=== PATIENT | male | born 1960 | race Caucasian/White ===

== ENCOUNTER → 2016-07-01 | Outpatient (CLI) | payer MEDICARE ==
[~2016-07-01] MED LIST: ASPIRIN81 MG PO; COREG12.5 MG PO; GLUCOPHAGE1000 MG PO; LANTUS100 UNIT/1 SQ; LIPITOR TAB 2020 MG PO; LISINOPRIL40 MG PO; NEURONTIN 400400 MG PO; NORVASC 5 MG TAB5 MG PO; PLAVIX 75 MG TA75 MG PO; VITAMIN B12-FO1 EACH PO
[2016-07-01 09:00] LABS: BUN/CREATININE RATIO 20 (0-10)
== END ==
LOC: LAB 07:43 → EDBD 07:43
PROVIDERS: Nurse Practitioner
DX: E11.8 Type 2 diabetes mellitus with unspecified complications (principal); R80.9 Proteinuria, unspecified
CPT/HCPCS: 80048; 80061; 82043; 82570; 83036; 84156; 84443

== ENCOUNTER 2020-05-13 13:01 | Inpatient (IN) | payer MEDICARE, OTHER ==
[~2020-05-13] VITALS: Ht 170.2 cm; Wt 75.4 kg
[~2020-05-13 13:01] MED LIST changes: +ADVAIR HFA 115/12 GM INH; +ALDACTONE25 MG PO; +CITALOPRAM HBR20 MG PO; +CLARITIN10 M2 PO; +CLOPIDOGREL75 MG PO; +COLESEVELAM HC625 MG PO; -COREG12.5 MG PO; +COREG3.125 MG PO; +CREON DR 36,001 EACH PO; +ELAVIL 25 MG TA25 MG PO; +FERROUS SULFAT325 MG PO; +FLOMAX 0.4 MG0.4 MG PO; +GABAPENTIN800 MG PO; +HYDROCODON-ACE1 EAC2 PO; +JARDIANCE25 MG PO; +MELATONIN10 M2 PO; +MIRTAZAPINE30 MG PO; +OLANZAPINE5 MG PO; +PAROXETINE HCL20 MG PO; +PAXIL20 MG PO; +PHENERGAN 12.12.5 M1 PO; +PROTONIX 40 MG40 M1 PO; +VENTOLIN HFA 66.7 GM INH; +VITAMIN B-122500 MCG PO
[2020-05-13 14:34] LABS: HEMOGLOBIN 8.9 gm/dl (14.0-17.5)
[2020-05-13 14:38] LABS: RED BLOOD COUNT 2.85 M/UL (4.20-5.50); WHITE BLOOD COUNT 8.2 K/UL (4.5-11.0)
[2020-05-13 15:02] LABS: BUN/CREATININE RATIO 18 (0-10)
[2020-05-13] MEDS ORDERED: HUMALOG100 UNIT/3 SQ (19:21)
[2020-05-13] MEDS ORDERED: VITAMIN D21250 MCG PO (19:26)
[2020-05-13] MEDS ORDERED: ROPINIROLE HCL2 MG PO (19:34)
[2020-05-13] MEDS ORDERED: IPRAT-ALBUT 0.5-3 ML INH (19:36)
[2020-05-14 05:04] LABS: HEMOGLOBIN 8.2 gm/dl (14.0-17.5); RED BLOOD COUNT 2.64 M/UL (4.20-5.50)
[2020-05-14 05:28] LABS: BUN/CREATININE RATIO 16 (0-10)
[2020-05-15 05:01] LABS: HEMOGLOBIN 8.1 gm/dl (14.0-17.5); RED BLOOD COUNT 2.6 M/UL (4.20-5.50); WHITE BLOOD COUNT 8.7 K/UL (4.5-11.0)
[2020-05-15 05:22] LABS: BUN/CREATININE RATIO 10 (0-10)
--- NOTE | 2020-05-15 16:46 | NUR ---
BLOOD SUGAR 64MG/DL
[2020-05-16 06:41] LABS: BUN/CREATININE RATIO 11 (0-10)
[2020-05-17 04:11] LABS: HEMOGLOBIN 8.7 gm/dl (14.0-17.5); RED BLOOD COUNT 2.86 M/UL (4.20-5.50); WHITE BLOOD COUNT 8.4 K/UL (4.5-11.0)
[2020-05-17 04:47] LABS: BUN/CREATININE RATIO 16 (0-10)
[2020-05-18 07:16] LABS: BUN/CREATININE RATIO 19 (0-10)
[2020-05-19 06:21] LABS: HEMOGLOBIN 9.4 gm/dl (14.0-17.5); RED BLOOD COUNT 3.05 M/UL (4.20-5.50); WHITE BLOOD COUNT 8.9 K/UL (4.5-11.0)
[2020-05-19 06:43] LABS: BUN/CREATININE RATIO 20 (0-10)
[2020-05-20 03:31] LABS: HEMOGLOBIN 9.9 gm/dl (14.0-17.5); RED BLOOD COUNT 3.2 M/UL (4.20-5.50); WHITE BLOOD COUNT 10.2 K/UL (4.5-11.0)
[2020-05-20 04:03] LABS: BUN/CREATININE RATIO 21 (0-10)
[2020-05-21 03:21] LABS: HEMOGLOBIN 9.4 gm/dl (14.0-17.5); RED BLOOD COUNT 3.04 M/UL (4.20-5.50); WHITE BLOOD COUNT 9.2 K/UL (4.5-11.0)
[2020-05-21 03:43] LABS: BUN/CREATININE RATIO 25 (0-10)
[2020-05-22 03:30] LABS: HEMOGLOBIN 9.8 gm/dl (14.0-17.5); RED BLOOD COUNT 3.15 M/UL (4.20-5.50)
[2020-05-22 03:46] LABS: BUN/CREATININE RATIO 20 (0-10)
--- NOTE | 2020-05-22 07:34 | NUR ---
SPOKE WITH PATIENT AND SON, STATED HE HASN'T WALKED IN 3 YEARS D/T STROKE AND WEAKNESS. [place]
[2020-05-22] MEDS ORDERED: LOPRESSOR 50 MG50 MG PO (10:22)
[2020-05-22] MEDS ORDERED: LISINOPRIL5 MG PO (10:22)
[2020-09-17] MEDS ORDERED: GABAPENTIN800 MG PO (07:50)
[2020-09-17] MEDS ORDERED: OXYCODON-ACETA1 EAC1 PO (07:51)
[2020-09-17] MEDS ORDERED: CREON DR 36,001 EACH PO (07:52)
[2020-09-17] MEDS ORDERED: FUROSEMIDE40 MG PO (07:53)
[2020-09-17] MEDS ORDERED: MIRTAZAPINE30 MG PO (07:53)
[2020-09-17] MEDS ORDERED: LANTUS SOL100 UNIT/1 SQ (07:54)
[2020-09-17] MEDS ORDERED: ATORVASTATIN CA40 MG PO (07:55)
[2020-09-17] MEDS ORDERED: CITALOPRAM HBR20 MG PO (07:55)
[2020-09-17] MEDS ORDERED: FERROUS SULFAT325 MG PO (07:56)
[2020-09-17] MEDS ORDERED: CLOPIDOGREL75 MG PO (07:56)
[2020-09-17] MEDS ORDERED: HUMALOG100 UNIT/3 SC (07:56)
[2020-09-17] MEDS ORDERED: COLESEVELAM HC625 MG PO (07:57)
[2020-09-17] MEDS ORDERED: LOPRESSOR 50 MG50 MG PO (07:58)
[2020-09-17] MEDS ORDERED: PAROXETINE HCL20 MG PO (07:59)
[2020-09-17] MEDS ORDERED: PROTONIX 40 MG40 M1 PO (08:00)
[2020-09-17] MEDS ORDERED: PHENERGAN 25 MG25 M1 PO (08:00)
[2020-09-17] MEDS ORDERED: POTASSIUM CHLO10 ME1 PO (08:01)
[2020-09-17] MEDS ORDERED: ROPINIROLE HCL2 MG PO (08:01)
[2020-09-17] MEDS ORDERED: OLANZAPINE5 MG PO (08:02)
[2020-09-17] MEDS ORDERED: CLARITIN 10MG T10 MG PO (08:02)
[2020-09-17] MEDS ORDERED: VITAMIN D21250 MCG PO (08:02)
[2020-09-17] MEDS ORDERED: MELATONIN5 M2 PO (08:03)
[2020-09-17] MEDS ORDERED: FLOMAX 0.4 MG0.4 MG PO (08:03)
[2020-09-17] MEDS ORDERED: AMITRIPTYLINE H25 MG PO (08:03)
[2020-09-17] MEDS ORDERED: VITAMIN B-122500 MCG PO (08:04)
[2020-09-17] MEDS ORDERED: PROVENTIL HFA6.7 GM INH (08:05)
[2020-09-17] MEDS ORDERED: ALBUTEROL1.25 MG/3 INH (08:05)
[2020-09-17] MEDS ORDERED: ADVAIR 250-501 EACH INH (08:06)
== END 2020-05-22 13:20 | disposition home health service (06) | DRG 871 ==
LOC: ER1 13:01 → M/S 17:17 → CDU 17:17 → M/S 05-14 18:12
PROVIDERS: Emergency Medicine; Family Medicine; Internal Medicine Cardiovascular Disease; Physician Assistant Medical; ADMIT Internal Medicine
PROC: B24BZZZ Ultrasonography of Heart with Aorta (ICD-10-PCS; 2020-05-14)
PROC: 4A023N7 Measurement of Cardiac Sampling and Pressure, Left Heart, Percutaneous Approach (ICD-10-PCS; principal; 2020-05-20)
PROC: B2111ZZ Fluoroscopy of Multiple Coronary Arteries using Low Osmolar Contrast (ICD-10-PCS; 2020-05-20)
PROC: B2151ZZ Fluoroscopy of Left Heart using Low Osmolar Contrast (ICD-10-PCS; 2020-05-20)
PROC: 4A033BC Measurement of Arterial Pressure, Coronary, Percutaneous Approach (ICD-10-PCS; 2020-05-20)
DX: A41.9 Sepsis, unspecified organism (principal); J96.01 Acute respiratory failure with hypoxia; R53.2 Functional quadriplegia; I50.21 Acute systolic (congestive) heart failure; I69.354 Hemiplegia and hemiparesis following cerebral infarction affecting left non-dominant side; C25.9 Malignant neoplasm of pancreas, unspecified; E87.2 Acidosis; K52.1 Toxic gastroenteritis and colitis; Z20.822 Contact with and (suspected) exposure to COVID-19; I25.10 Atherosclerotic heart disease of native coronary artery without angina pectoris; R74.01 Elevation of levels of liver transaminase levels; I11.0 Hypertensive heart disease with heart failure; I25.5 Ischemic cardiomyopathy; D63.0 Anemia in neoplastic disease; E11.65 Type 2 diabetes mellitus with hyperglycemia; T45.1X5A Adverse effect of antineoplastic and immunosuppressive drugs, initial encounter; E55.9 Vitamin D deficiency, unspecified; E78.5 Hyperlipidemia, unspecified; K21.9 Gastro-esophageal reflux disease without esophagitis; D50.9 Iron deficiency anemia, unspecified; E87.6 Hypokalemia; G47.00 Insomnia, unspecified; Z82.49 Family history of ischemic heart disease and other diseases of the circulatory system; Z88.8 Allergy status to other drugs, medicaments and biological substances; Z88.2 Allergy status to sulfonamides; Z74.01 Bed confinement status; Z83.3 Family history of diabetes mellitus; Z84.89 Family history of other specified conditions; Z79.02 Long term (current) use of antithrombotics/antiplatelets; Z79.82 Long term (current) use of aspirin; Z79.899 Other long term (current) drug therapy
CPT/HCPCS: ECHO; 0240U; 36415; 71045; 80048; 80053; 80061; 80202; 81001; 82607; 82962; 83036; 83605; 83735; 83880; 84100; 84443; 85014; 85018; 85025; 85027; 87040; 87081; 87086; 93005; 93306; 93970; 94640; 94760; 96365; 96366; 96367; 96368; 96372; 96375; 96376; 97110-GP-CQ; 97162; 97530-GP-CQ; 99152; 99153; 99285; C1769; J1644; J1650; J1940; J2185; J2250; J2270; J3010; J3370; J7030; J7050; J7070; P9047; Q9963; Q9967

== ENCOUNTER → 2020-06-13 | Outpatient (CLI) | payer OTHER ==
[~2020-06-13] MED LIST changes: +ADVAIR 250-501 EACH INH; +ADVAIR HFA 115-28 GM INH; +ALBUTEROL1.25 MG/3 INH; +AMITRIPTYLINE H25 MG PO; +ASPIRIN EC81 MG PO; +ATORVASTATIN CA40 MG PO; +CELEXA20 MG PO; +CENTRUM MU9 MG/15 ML PO; +CLARITIN 10MG T10 MG PO; +FERROUS SULFAT325 M2 PO; +FUROSEMIDE40 MG PO; +HUMALOG100 UNIT/3 SC; +HUMALOG100 UNIT/3 SQ; +HYDROCODONE-AC1 EAC1 PO; +IPRAT-ALBUT 0.5-3 ML INH; +LANTUS SOL100 UNIT/1 SQ; +LASIX40 MG PO; +LIPITOR40 MG PO; +LISINOPRIL5 MG PO; +LOPRESSOR 50 MG50 MG PO; +LOPRESSOR50 MG PO; +MEDIHONEY TP; +MELATONIN5 M2 PO; +NEURONTIN800 MG PO; +OXYCODON-ACETA1 EAC1 PO; +PHENERGAN 25 MG25 M1 PO; +POTASSIUM CHLO10 ME1 PO; +PROTONIX40 MG PO; +PROVENTIL HFA6.7 GM INH; +REMERON30 MG PO; +ROPINIROLE HCL2 MG PO; +VITAMIN B-1100 M1 PO; +VITAMIN B-122500 MCG SL; +VITAMIN D21250 MCG PO; +WELCHOL 625 MG625 MG PO; +ZESTRIL5 MG PO; +ZYPREXA5 MG PO
== END ==
LOC: EDBD 08:24 → WCC 08:24
DX: E11.621 Type 2 diabetes mellitus with foot ulcer (principal); L97.509 Non-pressure chronic ulcer of other part of unspecified foot with unspecified severity; E11.618 Type 2 diabetes mellitus with other diabetic arthropathy; I10 Essential (primary) hypertension; M62.81 Muscle weakness (generalized); I69.364 Other paralytic syndrome following cerebral infarction affecting left non-dominant side; N18.30 Chronic kidney disease, stage 3 unspecified; I25.5 Ischemic cardiomyopathy; C25.3 Malignant neoplasm of pancreatic duct; E11.22 Type 2 diabetes mellitus with diabetic chronic kidney disease; Z79.4 Long term (current) use of insulin; Z87.01 Personal history of pneumonia (recurrent); Z99.3 Dependence on wheelchair
CPT/HCPCS: 97597; G0463

== ENCOUNTER 2020-06-16 10:03 | Observation (INO) | payer MEDICARE, OTHER ==
[~2020-06-16] VITALS: Ht 167.6 cm; Wt 74.8 kg
[~2020-06-16 10:03] MED LIST changes: -ADVAIR 250-501 EACH INH; -ADVAIR HFA 115-28 GM INH; -ALBUTEROL1.25 MG/3 INH; -AMITRIPTYLINE H25 MG PO; -ASPIRIN EC81 MG PO; -ATORVASTATIN CA40 MG PO; -CELEXA20 MG PO; -CENTRUM MU9 MG/15 ML PO; -CLARITIN 10MG T10 MG PO; -FERROUS SULFAT325 M2 PO; -FUROSEMIDE40 MG PO; -HUMALOG100 UNIT/3 SC; -HYDROCODONE-AC1 EAC1 PO; -LANTUS SOL100 UNIT/1 SQ; -LASIX40 MG PO; -LIPITOR40 MG PO; -LOPRESSOR50 MG PO; -MEDIHONEY TP; -MELATONIN5 M2 PO; -NEURONTIN800 MG PO; -OXYCODON-ACETA1 EAC1 PO; -PHENERGAN 25 MG25 M1 PO; -POTASSIUM CHLO10 ME1 PO; -PROTONIX40 MG PO; -PROVENTIL HFA6.7 GM INH; -REMERON30 MG PO; -VITAMIN B-1100 M1 PO; -VITAMIN B-122500 MCG SL; -WELCHOL 625 MG625 MG PO; -ZESTRIL5 MG PO; -ZYPREXA5 MG PO
[2020-06-16 10:53] LABS: HEMOGLOBIN 8.3 gm/dl (14.0-17.5); RED BLOOD COUNT 2.64 M/UL (4.20-5.50); WHITE BLOOD COUNT 5.7 K/UL (4.5-11.0)
[2020-06-16 11:34] LABS: BUN/CREATININE RATIO 16 (0-10)
[2020-06-16] MEDS ORDERED: LOPRESSOR50 MG PO (17:26)
[2020-06-16] MEDS ORDERED: PLAVIX 75 MG TA75 MG PO (17:26)
[2020-06-16] MEDS ORDERED: ZESTRIL5 MG PO (17:26)
[2020-06-16] MEDS ORDERED: LIPITOR40 MG PO (17:26)
[2020-06-16] MEDS ORDERED: LANTUS SOL100 UNIT/1 SQ (17:27)
[2020-06-16] MEDS ORDERED: ASPIRIN EC81 MG PO (17:27)
[2020-06-16] MEDS ORDERED: HYDROCODONE-AC1 EAC1 PO (17:28)
[2020-06-16] MEDS ORDERED: NEURONTIN800 MG PO (17:28)
[2020-06-16] MEDS ORDERED: PROTONIX40 MG PO (17:29)
[2020-06-16] MEDS ORDERED: CELEXA20 MG PO (17:29)
[2020-06-16] MEDS ORDERED: ZYPREXA5 MG PO (17:30)
[2020-06-16] MEDS ORDERED: PHENERGAN 12.12.5 M1 PO (17:30)
[2020-06-16] MEDS ORDERED: FLOMAX 0.4 MG0.4 MG PO (17:30)
[2020-06-16] MEDS ORDERED: WELCHOL 625 MG625 MG PO (17:31)
[2020-06-16] MEDS ORDERED: FERROUS SULFAT325 M2 PO (17:32)
[2020-06-16] MEDS ORDERED: ADVAIR HFA 115-28 GM INH (17:33)
[2020-06-16] MEDS ORDERED: VENTOLIN HFA 66.7 GM INH (17:34)
[2020-06-16] MEDS ORDERED: PAXIL20 MG PO (17:36)
[2020-06-16] MEDS ORDERED: CLARITIN10 M2 PO (17:36)
[2020-06-16] MEDS ORDERED: CREON DR 36,001 EACH PO (17:36)
[2020-06-16] MEDS ORDERED: REMERON30 MG PO (17:37)
[2020-06-16] MEDS ORDERED: MELATONIN10 M2 PO (17:37)
[2020-06-16] MEDS ORDERED: VITAMIN B-122500 MCG SL (17:38)
[2020-06-16] MEDS ORDERED: AMITRIPTYLINE H25 MG PO (17:38)
[2020-06-16] MEDS ORDERED: HUMALOG100 UNIT/3 SC (17:40)
[2020-06-16] MEDS ORDERED: ROPINIROLE HCL2 MG PO (17:41)
[2020-06-16] MEDS ORDERED: VITAMIN D21250 MCG PO (17:41)
[2020-06-16] MEDS ORDERED: IPRAT-ALBUT 0.5-3 ML INH (17:42)
[2020-06-16 20:31] LABS: HEMOGLOBIN 8.8 gm/dl (14.0-17.5)
[2020-06-17 06:03] LABS: HEMOGLOBIN 7.8 gm/dl (14.0-17.5); RED BLOOD COUNT 2.46 M/UL (4.20-5.50); WHITE BLOOD COUNT 5.1 K/UL (4.5-11.0)
[2020-06-17 06:38] LABS: BUN/CREATININE RATIO 14 (0-10)
[2020-06-19 21:09] LABS: ADENOVIRUS F 40/41 Not Detected (Not Detected); ASTROVIRUS Not Detected (Not Detected); C DIFFICILE TOXIN A/B Not Detected (Not Detected); CAMPYLOBACTER Not Detected (Not Detected); CRYPTOSPORIDIUM Not Detected (Not Detected); CYCLOSPORA CAYETANENSIS Not Detected (Not Detected); ENTAMOEBA HISTOLYTICA Not Detected (Not Detected); ENTEROAGGREGATIVE E COLI Not Detected (Not Detected); ENTEROPATHOGENIC E COLI Not Detected (Not Detected); ENTEROTOXIGENIC E COLI Not Detected (Not Detected); GIARDIA LAMBLIA Not Detected (Not Detected); NOROVIRUS GI/GII Not Detected (Not Detected); PLESIOMONAS SHIGELLOIDES Not Detected (Not Detected); ROTAVIRUS A Not Detected (Not Detected); SALMONELLA Not Detected (Not Detected); SAPOVIRUS Not Detected (Not Detected); SHIGA-TOXIN-PRODUCING E COLI Not Detected (Not Detected); SHIGELLA/ENTEROINVASIVE E COLI Not Detected (Not Detected); VIBRIO Not Detected (Not Detected); VIBRIO CHOLERAE Not Detected (Not Detected); YERSINIA ENTEROCOLITICA Not Detected (Not Detected)
[2020-09-17] MEDS ORDERED: GABAPENTIN800 MG PO (07:50)
[2020-09-17] MEDS ORDERED: OXYCODON-ACETA1 EAC1 PO (07:51)
[2020-09-17] MEDS ORDERED: CREON DR 36,001 EACH PO (07:52)
[2020-09-17] MEDS ORDERED: FUROSEMIDE40 MG PO (07:53)
[2020-09-17] MEDS ORDERED: MIRTAZAPINE30 MG PO (07:53)
[2020-09-17] MEDS ORDERED: LANTUS SOL100 UNIT/1 SQ (07:54)
[2020-09-17] MEDS ORDERED: CITALOPRAM HBR20 MG PO (07:55)
[2020-09-17] MEDS ORDERED: ATORVASTATIN CA40 MG PO (07:55)
[2020-09-17] MEDS ORDERED: CLOPIDOGREL75 MG PO (07:56)
[2020-09-17] MEDS ORDERED: HUMALOG100 UNIT/3 SC (07:56)
[2020-09-17] MEDS ORDERED: FERROUS SULFAT325 MG PO (07:56)
[2020-09-17] MEDS ORDERED: COLESEVELAM HC625 MG PO (07:57)
[2020-09-17] MEDS ORDERED: LOPRESSOR 50 MG50 MG PO (07:58)
[2020-09-17] MEDS ORDERED: PAROXETINE HCL20 MG PO (07:59)
[2020-09-17] MEDS ORDERED: PHENERGAN 25 MG25 M1 PO (08:00)
[2020-09-17] MEDS ORDERED: PROTONIX 40 MG40 M1 PO (08:00)
[2020-09-17] MEDS ORDERED: ROPINIROLE HCL2 MG PO (08:01)
[2020-09-17] MEDS ORDERED: POTASSIUM CHLO10 ME1 PO (08:01)
[2020-09-17] MEDS ORDERED: CLARITIN 10MG T10 MG PO (08:02)
[2020-09-17] MEDS ORDERED: OLANZAPINE5 MG PO (08:02)
[2020-09-17] MEDS ORDERED: VITAMIN D21250 MCG PO (08:02)
[2020-09-17] MEDS ORDERED: MELATONIN5 M2 PO (08:03)
[2020-09-17] MEDS ORDERED: FLOMAX 0.4 MG0.4 MG PO (08:03)
[2020-09-17] MEDS ORDERED: AMITRIPTYLINE H25 MG PO (08:03)
[2020-09-17] MEDS ORDERED: VITAMIN B-122500 MCG PO (08:04)
[2020-09-17] MEDS ORDERED: ALBUTEROL1.25 MG/3 INH (08:05)
[2020-09-17] MEDS ORDERED: PROVENTIL HFA6.7 GM INH (08:05)
[2020-09-17] MEDS ORDERED: ADVAIR 250-501 EACH INH (08:06)
== END 2020-06-17 13:35 | disposition home or self-care (01) ==
LOC: ER1 10:03 → MED SURG 4 16:46 → CDU 16:46 → MED SURG 4 16:46
PROVIDERS: Internal Medicine; Nurse Practitioner; Physician Assistant; ADMIT Internal Medicine
DX: K92.1 Melena (principal); D62 Acute posthemorrhagic anemia; D61.818 Other pancytopenia; E87.6 Hypokalemia; R74.01 Elevation of levels of liver transaminase levels; C25.9 Malignant neoplasm of pancreas, unspecified; J45.909 Unspecified asthma, uncomplicated; E11.9 Type 2 diabetes mellitus without complications; I11.0 Hypertensive heart disease with heart failure; I50.22 Chronic systolic (congestive) heart failure; I25.10 Atherosclerotic heart disease of native coronary artery without angina pectoris; I25.5 Ischemic cardiomyopathy; F10.10 Alcohol abuse, uncomplicated; I69.954 Hemiplegia and hemiparesis following unspecified cerebrovascular disease affecting left non-dominant side; Z87.891 Personal history of nicotine dependence; Z88.1 Allergy status to other antibiotic agents; Z88.8 Allergy status to other drugs, medicaments and biological substances; Z79.4 Long term (current) use of insulin; Z79.02 Long term (current) use of antithrombotics/antiplatelets; Z79.82 Long term (current) use of aspirin; Z79.899 Other long term (current) drug therapy; Z20.822 Contact with and (suspected) exposure to COVID-19; Z95.5 Presence of coronary angioplasty implant and graft; Z95.1 Presence of aortocoronary bypass graft
CPT/HCPCS: 36415; 80048; 80053; 82140; 82270; 82962; 83605; 83735; 85014; 85018; 85025; 85610; 85730; 86850; 86900; 86901; 87040; 87507; 90471; 94640; 94664; 96372; 96374; 96375; 99285; C9113; G0378; J3475; U0002

== ENCOUNTER → 2020-06-20 | Outpatient (CLI) | payer MEDICARE, OTHER ==
[~2020-06-20] MED LIST changes: +ADVAIR 250-501 EACH INH; +ADVAIR HFA 115-28 GM INH; +ALBUTEROL1.25 MG/3 INH; +AMITRIPTYLINE H25 MG PO; +ASPIRIN EC81 MG PO; +ATORVASTATIN CA40 MG PO; +CELEXA20 MG PO; +CENTRUM MU9 MG/15 ML PO; +CLARITIN 10MG T10 MG PO; +FERROUS SULFAT325 M2 PO; +FUROSEMIDE40 MG PO; +HUMALOG100 UNIT/3 SC; +HYDROCODONE-AC1 EAC1 PO; +LANTUS SOL100 UNIT/1 SQ; +LASIX40 MG PO; +LIPITOR40 MG PO; +LOPRESSOR50 MG PO; +MEDIHONEY TP; +MELATONIN5 M2 PO; +NEURONTIN800 MG PO; +OXYCODON-ACETA1 EAC1 PO; +PHENERGAN 25 MG25 M1 PO; +POTASSIUM CHLO10 ME1 PO; +PROTONIX40 MG PO; +PROVENTIL HFA6.7 GM INH; +REMERON30 MG PO; +VITAMIN B-1100 M1 PO; +VITAMIN B-122500 MCG SL; +WELCHOL 625 MG625 MG PO; +ZESTRIL5 MG PO; +ZYPREXA5 MG PO
== END ==
LOC: WCC 08:15
PROC: 0JBR0ZZ Excision of Left Foot Subcutaneous Tissue and Fascia, Open Approach (ICD-10-PCS; principal; 2020-06-20)
DX: I96 Gangrene, not elsewhere classified (principal); L89.890 Pressure ulcer of other site, unstageable; E11.621 Type 2 diabetes mellitus with foot ulcer; L97.529 Non-pressure chronic ulcer of other part of left foot with unspecified severity; E11.52 Type 2 diabetes mellitus with diabetic peripheral angiopathy with gangrene; E11.618 Type 2 diabetes mellitus with other diabetic arthropathy; E11.40 Type 2 diabetes mellitus with diabetic neuropathy, unspecified; M62.81 Muscle weakness (generalized); I69.364 Other paralytic syndrome following cerebral infarction affecting left non-dominant side; I12.9 Hypertensive chronic kidney disease with stage 1 through stage 4 chronic kidney disease, or unspecified chronic kidney disease; E11.22 Type 2 diabetes mellitus with diabetic chronic kidney disease; N18.30 Chronic kidney disease, stage 3 unspecified; D63.1 Anemia in chronic kidney disease; I25.2 Old myocardial infarction; J45.909 Unspecified asthma, uncomplicated; I25.10 Atherosclerotic heart disease of native coronary artery without angina pectoris; M19.90 Unspecified osteoarthritis, unspecified site; C25.3 Malignant neoplasm of pancreatic duct; G40.909 Epilepsy, unspecified, not intractable, without status epilepticus; Z88.1 Allergy status to other antibiotic agents; Z88.8 Allergy status to other drugs, medicaments and biological substances; Z79.4 Long term (current) use of insulin; Z87.01 Personal history of pneumonia (recurrent); Z79.899 Other long term (current) drug therapy; Z99.3 Dependence on wheelchair; Z92.21 Personal history of antineoplastic chemotherapy

== ENCOUNTER → 2020-06-27 | Outpatient (CLI) | payer MEDICARE, OTHER | LOC: WCC 07:27 | PROC: 0KBW0ZZ Excision of Left Foot Muscle, Open Approach (ICD-10-PCS; principal; 2020-06-27) | DX: E11.621 Type 2 diabetes mellitus with foot ulcer (principal); L97.523 Non-pressure chronic ulcer of other part of left foot with necrosis of muscle; E11.52 Type 2 diabetes mellitus with diabetic peripheral angiopathy with gangrene; I96 Gangrene, not elsewhere classified; I12.9 Hypertensive chronic kidney disease with stage 1 through stage 4 chronic kidney disease, or unspecified chronic kidney disease; E11.22 Type 2 diabetes mellitus with diabetic chronic kidney disease; N18.30 Chronic kidney disease, stage 3 unspecified; D63.1 Anemia in chronic kidney disease; I69.364 Other paralytic syndrome following cerebral infarction affecting left non-dominant side; I25.2 Old myocardial infarction; C25.3 Malignant neoplasm of pancreatic duct; E11.618 Type 2 diabetes mellitus with other diabetic arthropathy; E11.40 Type 2 diabetes mellitus with diabetic neuropathy, unspecified; M62.81 Muscle weakness (generalized); Z87.01 Personal history of pneumonia (recurrent); Z79.4 Long term (current) use of insulin; Z79.899 Other long term (current) drug therapy; Z99.3 Dependence on wheelchair; Z88.1 Allergy status to other antibiotic agents; Z88.8 Allergy status to other drugs, medicaments and biological substances ==

== ENCOUNTER 2020-06-29 17:30 | Inpatient (IN) | payer MEDICARE, OTHER ==
[~2020-06-29] VITALS: Ht 170.2 cm; Wt 74.1 kg
[~2020-06-29 17:30] MED LIST changes: -ADVAIR 250-501 EACH INH; -ALBUTEROL1.25 MG/3 INH; -ATORVASTATIN CA40 MG PO; -CENTRUM MU9 MG/15 ML PO; -CLARITIN 10MG T10 MG PO; -FUROSEMIDE40 MG PO; -LASIX40 MG PO; -MEDIHONEY TP; -MELATONIN5 M2 PO; -OXYCODON-ACETA1 EAC1 PO; -PHENERGAN 25 MG25 M1 PO; -POTASSIUM CHLO10 ME1 PO; -PROVENTIL HFA6.7 GM INH; -VITAMIN B-1100 M1 PO
[2020-06-29 18:09] LABS: HEMOGLOBIN 8.4 gm/dl (14.0-17.5); RED BLOOD COUNT 2.68 M/UL (4.20-5.50); WHITE BLOOD COUNT 7.9 K/UL (4.5-11.0)
[2020-06-29 18:37] LABS: BUN/CREATININE RATIO 21 (0-10)
--- NOTE | 2020-06-30 08:00 | NUR ---
PT WAS WHEEZING ON ASSESSMENT. LUNGS WERE DIMINISHED ON THE LOWER LOBES. PT WAS IN NO DISTRESS. MD NOTIFIED.
--- NOTE | 2020-06-30 09:00 | NUR ---
PT HAS EXPIRATORY WHEEZING. LOWER LOBE SOUNDS WERE DIMINISHED. MD NOTIFIED.
--- NOTE | 2020-06-30 12:00 | NUR ---
PT HAS WOUND ON L HEEL. STATED THAT HE GOES TO WOUND CARE. NO PICTURES TAKEN. THERE ARE PICTURES OF THE WOUND IN [facility].
[2020-07-01 02:46] LABS: HEMOGLOBIN 7.7 gm/dl (14.0-17.5); RED BLOOD COUNT 2.49 M/UL (4.20-5.50); WHITE BLOOD COUNT 7.2 K/UL (4.5-11.0)
[2020-07-01 03:42] LABS: BUN/CREATININE RATIO 12 (0-10)
[2020-07-01] MEDS ORDERED: MEDIHONEY TP (12:57)
[2020-07-01] MEDS ORDERED: FERROUS SULFAT325 M2 PO (12:59)
--- NOTE | 2020-07-01 18:15 | NUR ---
PT CALLED OUT SAYING HE COULD NOT BREATH. ON ASSESSMENT I HEARD COARSE/RALES ON AUSCULTATION. AND THE PATIENT WAS HAVING TROUBLE BREATHING WHILE AT REST. MD NOTIFIED AND ORDERED A STAT X-RAY AND ABG. TOLD TO START PT ON HIGHFLOW OXYGEN. PT WAS THEN PUT ON AIRVO AND AFTER ABG WE WERE TOLD HE NEEDED INTUBATED AND TO PUT ON BIPAP UNTIL INTUBATED. RECIEVED ORDERS TO GIVE BEDSIDE REPORT. TRANSFERRED PT TO THE UNIT WITH BIPAP ON. BEDSIDE REPORT WAS GIVEN.
[2020-07-02 05:59] LABS: BUN/CREATININE RATIO 10 (0-10)
[2020-07-02 08:20] LABS: HEMOGLOBIN 8.4 gm/dl (14.0-17.5); RED BLOOD COUNT 2.73 M/UL (4.20-5.50)
[2020-07-02 08:24] LABS: WHITE BLOOD COUNT 10.4 K/UL (4.5-11.0)
[2020-07-03 05:06] LABS: BUN/CREATININE RATIO 15 (0-10)
[2020-07-04 05:01] LABS: HEMOGLOBIN 9.3 gm/dl (14.0-17.5); WHITE BLOOD COUNT 9.6 K/UL (4.5-11.0)
[2020-07-04 05:10] LABS: RED BLOOD COUNT 3.03 M/UL (4.20-5.50)
[2020-07-04 05:52] LABS: BUN/CREATININE RATIO 22 (0-10)
[2020-07-05 05:04] LABS: RED BLOOD COUNT 2.88 M/UL (4.20-5.50)
[2020-07-05 05:06] LABS: WHITE BLOOD COUNT 12.2 K/UL (4.5-11.0)
[2020-07-05 05:35] LABS: BUN/CREATININE RATIO 34 (0-10)
[2020-07-06 04:51] LABS: HEMOGLOBIN 10.4 gm/dl (14.0-17.5); WHITE BLOOD COUNT 13.6 K/UL (4.5-11.0)
[2020-07-06 04:53] LABS: RED BLOOD COUNT 3.4 M/UL (4.20-5.50)
[2020-07-06 05:52] LABS: BUN/CREATININE RATIO 38 (0-10)
[2020-07-07 01:29] LABS: HEMOGLOBIN 9.9 gm/dl (14.0-17.5); RED BLOOD COUNT 3.21 M/UL (4.20-5.50); WHITE BLOOD COUNT 10.6 K/UL (4.5-11.0)
[2020-07-07 01:50] LABS: BUN/CREATININE RATIO 31 (0-10)
[2020-07-08 03:02] LABS: BUN/CREATININE RATIO 27 (0-10)
[2020-07-09 03:10] LABS: HEMOGLOBIN 11.1 gm/dl (14.0-17.5); WHITE BLOOD COUNT 12.8 K/UL (4.5-11.0)
[2020-07-09 03:11] LABS: RED BLOOD COUNT 3.59 M/UL (4.20-5.50)
[2020-07-09 03:43] LABS: BUN/CREATININE RATIO 28 (0-10)
[2020-07-10] MEDS ORDERED: VITAMIN B-1100 M1 PO (10:28)
[2020-07-10] MEDS ORDERED: CENTRUM MU9 MG/15 ML PO (10:28)
[2020-07-10] MEDS ORDERED: LASIX40 MG PO (10:50)
[2020-09-17] MEDS ORDERED: GABAPENTIN800 MG PO (07:50)
[2020-09-17] MEDS ORDERED: OXYCODON-ACETA1 EAC1 PO (07:51)
[2020-09-17] MEDS ORDERED: CREON DR 36,001 EACH PO (07:52)
[2020-09-17] MEDS ORDERED: MIRTAZAPINE30 MG PO (07:53)
[2020-09-17] MEDS ORDERED: FUROSEMIDE40 MG PO (07:53)
[2020-09-17] MEDS ORDERED: LANTUS SOL100 UNIT/1 SQ (07:54)
[2020-09-17] MEDS ORDERED: ATORVASTATIN CA40 MG PO (07:55)
[2020-09-17] MEDS ORDERED: CITALOPRAM HBR20 MG PO (07:55)
[2020-09-17] MEDS ORDERED: FERROUS SULFAT325 MG PO (07:56)
[2020-09-17] MEDS ORDERED: CLOPIDOGREL75 MG PO (07:56)
[2020-09-17] MEDS ORDERED: HUMALOG100 UNIT/3 SC (07:56)
[2020-09-17] MEDS ORDERED: COLESEVELAM HC625 MG PO (07:57)
[2020-09-17] MEDS ORDERED: LOPRESSOR 50 MG50 MG PO (07:58)
[2020-09-17] MEDS ORDERED: PAROXETINE HCL20 MG PO (07:59)
[2020-09-17] MEDS ORDERED: PHENERGAN 25 MG25 M1 PO (08:00)
[2020-09-17] MEDS ORDERED: PROTONIX 40 MG40 M1 PO (08:00)
[2020-09-17] MEDS ORDERED: ROPINIROLE HCL2 MG PO (08:01)
[2020-09-17] MEDS ORDERED: POTASSIUM CHLO10 ME1 PO (08:01)
[2020-09-17] MEDS ORDERED: CLARITIN 10MG T10 MG PO (08:02)
[2020-09-17] MEDS ORDERED: OLANZAPINE5 MG PO (08:02)
[2020-09-17] MEDS ORDERED: VITAMIN D21250 MCG PO (08:02)
[2020-09-17] MEDS ORDERED: FLOMAX 0.4 MG0.4 MG PO (08:03)
[2020-09-17] MEDS ORDERED: MELATONIN5 M2 PO (08:03)
[2020-09-17] MEDS ORDERED: AMITRIPTYLINE H25 MG PO (08:03)
[2020-09-17] MEDS ORDERED: VITAMIN B-122500 MCG PO (08:04)
[2020-09-17] MEDS ORDERED: ALBUTEROL1.25 MG/3 INH (08:05)
[2020-09-17] MEDS ORDERED: PROVENTIL HFA6.7 GM INH (08:05)
[2020-09-17] MEDS ORDERED: ADVAIR 250-501 EACH INH (08:06)
== END 2020-07-10 14:36 | disposition home or self-care (01) | DRG 208 ==
LOC: ER1 17:30 → PROG CARE 22:59 → CDU 22:59 → CCU 22:59 → PROG CARE 06-30 05:41 → CCU 07-01 18:27 → MED SURG 4 07-07 16:13
PROVIDERS: Emergency Medicine; Internal Medicine; Internal Medicine Hematology & Oncology; Internal Medicine Pulmonary Disease; Registered Nurse; ADMIT Internal Medicine
PROC: 0BH17EZ Insertion of Endotracheal Airway into Trachea, Via Natural or Artificial Opening (ICD-10-PCS; principal; 2020-07-01)
PROC: 5A1945Z Respiratory Ventilation, 24-96 Consecutive Hours (ICD-10-PCS; 2020-07-01)
DX: J96.01 Acute respiratory failure with hypoxia (principal); J18.9 Pneumonia, unspecified organism; I50.23 Acute on chronic systolic (congestive) heart failure; G93.41 Metabolic encephalopathy; E43 Unspecified severe protein-calorie malnutrition; R53.2 Functional quadriplegia; K92.2 Gastrointestinal hemorrhage, unspecified; I69.354 Hemiplegia and hemiparesis following cerebral infarction affecting left non-dominant side; Z88.8 Allergy status to other drugs, medicaments and biological substances; I25.10 Atherosclerotic heart disease of native coronary artery without angina pectoris; E87.6 Hypokalemia; E11.40 Type 2 diabetes mellitus with diabetic neuropathy, unspecified; I11.0 Hypertensive heart disease with heart failure; F19.10 Other psychoactive substance abuse, uncomplicated; E11.65 Type 2 diabetes mellitus with hyperglycemia; D64.9 Anemia, unspecified; G89.4 Chronic pain syndrome; Z95.1 Presence of aortocoronary bypass graft; Z85.07 Personal history of malignant neoplasm of pancreas; Z79.4 Long term (current) use of insulin; Z87.891 Personal history of nicotine dependence; Z98.890 Other specified postprocedural states; Z79.82 Long term (current) use of aspirin; Z79.899 Other long term (current) drug therapy; Z79.02 Long term (current) use of antithrombotics/antiplatelets; Z88.2 Allergy status to sulfonamides; Z20.822 Contact with and (suspected) exposure to COVID-19
CPT/HCPCS: 0240U; 31500; 36415; 36600; 51701; 71045; 74230; 80048; 80053; 80202; 81001; 82140; 82150; 82550; 82553; 82803; 82962; 83605; 83615; 83690; 83735; 83874; 83880; 84100; 84132; 84439; 84443; 84484; 85025; 85027; 85610; 85652; 86140; 86301; 87040; 87070; 87086; 87205; 92526; 92610; 92611-GN; 93005; 94003; 94660; 94664; 94760; 96365; 96375; 97162; 97166; 99285; C9113; J0330; J1205; J1650; J1940; J2185; J2250; J3370; J3475; J3480; J7040; J7050; J7070; P9047; Q9967

== ENCOUNTER 2020-07-10 16:21 | Emergency (ER) | payer MEDICARE, OTHER ==
[~2020-07-10 16:21] MED LIST changes: +CENTRUM MU9 MG/15 ML PO; +LASIX40 MG PO; +MEDIHONEY TP; +VITAMIN B-1100 M1 PO
[2020-07-10 18:32] LABS: HEMOGLOBIN 11.4 gm/dl (14.0-17.5); RED BLOOD COUNT 3.65 M/UL (4.20-5.50); WHITE BLOOD COUNT 13.5 K/UL (4.5-11.0)
[2020-07-10 18:50] LABS: BUN/CREATININE RATIO 25 (0-10)
[2020-09-17] MEDS ORDERED: GABAPENTIN800 MG PO (07:50)
[2020-09-17] MEDS ORDERED: OXYCODON-ACETA1 EAC1 PO (07:51)
[2020-09-17] MEDS ORDERED: CREON DR 36,001 EACH PO (07:52)
[2020-09-17] MEDS ORDERED: MIRTAZAPINE30 MG PO (07:53)
[2020-09-17] MEDS ORDERED: FUROSEMIDE40 MG PO (07:53)
[2020-09-17] MEDS ORDERED: LANTUS SOL100 UNIT/1 SQ (07:54)
[2020-09-17] MEDS ORDERED: ATORVASTATIN CA40 MG PO (07:55)
[2020-09-17] MEDS ORDERED: CITALOPRAM HBR20 MG PO (07:55)
[2020-09-17] MEDS ORDERED: CLOPIDOGREL75 MG PO (07:56)
[2020-09-17] MEDS ORDERED: FERROUS SULFAT325 MG PO (07:56)
[2020-09-17] MEDS ORDERED: HUMALOG100 UNIT/3 SC (07:56)
[2020-09-17] MEDS ORDERED: COLESEVELAM HC625 MG PO (07:57)
[2020-09-17] MEDS ORDERED: LOPRESSOR 50 MG50 MG PO (07:58)
[2020-09-17] MEDS ORDERED: PAROXETINE HCL20 MG PO (07:59)
[2020-09-17] MEDS ORDERED: PHENERGAN 25 MG25 M1 PO (08:00)
[2020-09-17] MEDS ORDERED: PROTONIX 40 MG40 M1 PO (08:00)
[2020-09-17] MEDS ORDERED: POTASSIUM CHLO10 ME1 PO (08:01)
[2020-09-17] MEDS ORDERED: ROPINIROLE HCL2 MG PO (08:01)
[2020-09-17] MEDS ORDERED: VITAMIN D21250 MCG PO (08:02)
[2020-09-17] MEDS ORDERED: OLANZAPINE5 MG PO (08:02)
[2020-09-17] MEDS ORDERED: CLARITIN 10MG T10 MG PO (08:02)
[2020-09-17] MEDS ORDERED: AMITRIPTYLINE H25 MG PO (08:03)
[2020-09-17] MEDS ORDERED: FLOMAX 0.4 MG0.4 MG PO (08:03)
[2020-09-17] MEDS ORDERED: MELATONIN5 M2 PO (08:03)
[2020-09-17] MEDS ORDERED: VITAMIN B-122500 MCG PO (08:04)
[2020-09-17] MEDS ORDERED: ALBUTEROL1.25 MG/3 INH (08:05)
[2020-09-17] MEDS ORDERED: PROVENTIL HFA6.7 GM INH (08:05)
[2020-09-17] MEDS ORDERED: ADVAIR 250-501 EACH INH (08:06)
== END 2020-07-10 19:20 | disposition home or self-care (01) ==
LOC: ER1 16:21
PROVIDERS: Emergency Medicine
DX: T85.590A Other mechanical complication of bile duct prosthesis, initial encounter (principal); E11.9 Type 2 diabetes mellitus without complications; Z86.73 Personal history of transient ischemic attack (TIA), and cerebral infarction without residual deficits; I42.9 Cardiomyopathy, unspecified; I11.0 Hypertensive heart disease with heart failure; I50.9 Heart failure, unspecified
CPT/HCPCS: 80053; 83690; 85025; 99283

== ENCOUNTER → 2020-09-17 | Day surgery (SDC) | payer MEDICARE, OTHER ==
[~2020-09-17] MED LIST changes: +ADVAIR 250-501 EACH INH; +ALBUTEROL1.25 MG/3 INH; +ATORVASTATIN CA40 MG PO; +CLARITIN 10MG T10 MG PO; +FUROSEMIDE40 MG PO; +MELATONIN5 M2 PO; +OXYCODON-ACETA1 EAC1 PO; +PHENERGAN 25 MG25 M1 PO; +POTASSIUM CHLO10 ME1 PO; +PROVENTIL HFA6.7 GM INH
== END | disposition home or self-care (01) ==
LOC: OR 06:57
PROVIDERS: Surgery
PROC: 02HV33Z Insertion of Infusion Device into Superior Vena Cava, Percutaneous Approach (ICD-10-PCS; principal; 2020-09-17 07:30)
PROC: 05PY33Z Removal of Infusion Device from Upper Vein, Percutaneous Approach (ICD-10-PCS; 2020-09-17 07:30)
DX: C25.9 Malignant neoplasm of pancreas, unspecified (principal); I11.0 Hypertensive heart disease with heart failure; I50.9 Heart failure, unspecified; I25.10 Atherosclerotic heart disease of native coronary artery without angina pectoris; E78.00 Pure hypercholesterolemia, unspecified; I87.8 Other specified disorders of veins; E10.42 Type 1 diabetes mellitus with diabetic polyneuropathy; E53.8 Deficiency of other specified B group vitamins; E53.1 Pyridoxine deficiency; J44.9 Chronic obstructive pulmonary disease, unspecified; R74.01 Elevation of levels of liver transaminase levels; M19.90 Unspecified osteoarthritis, unspecified site; I69.354 Hemiplegia and hemiparesis following cerebral infarction affecting left non-dominant side; Z79.4 Long term (current) use of insulin; Z79.82 Long term (current) use of aspirin; Z79.899 Other long term (current) drug therapy; Z88.1 Allergy status to other antibiotic agents
CPT/HCPCS: 71045; 77001; 82962; C1769; C1788; J0690; J1100; J1642; J2001; J2405; J2704; J3010; J7030; J7040; J7120

== ENCOUNTER → 2020-11-10 | Outpatient (CLI) | payer MEDICARE, OTHER ==
[~2020-11-10] MED LIST changes: +AMLODIPINE BESYL5 MG PO; +ATORVASTATIN CA20 MG PO; +CLINDAMYCIN PHO60 GM TP; +DEXAMETHASONE6 MG PO; +HUMALOG 10100 UNITS/ SC; +LANTUS SOL100 UNIT/1 SC; +LOPRESSOR 25 MG25 MG PO; +ROPINIROLE HCL0.5 MG PO; +SINGULAIR10 MG PO; +SODIUM CHLORI IR
== END ==
LOC: CT 13:00
DX: C25.0 Malignant neoplasm of head of pancreas (principal); C77.2 Secondary and unspecified malignant neoplasm of intra-abdominal lymph nodes; Z87.891 Personal history of nicotine dependence; K56.41 Fecal impaction; K86.89 Other specified diseases of pancreas
CPT/HCPCS: 71260; J1642; Q9967

== ENCOUNTER → 2020-11-27 | Outpatient (CLI) | payer MEDICARE, OTHER | LOC: MRI 14:00 | DX: M89.9 Disorder of bone, unspecified (principal); C25.0 Malignant neoplasm of head of pancreas; C77.2 Secondary and unspecified malignant neoplasm of intra-abdominal lymph nodes; Z87.891 Personal history of nicotine dependence; M51.34 Other intervertebral disc degeneration, thoracic region; M48.04 Spinal stenosis, thoracic region | CPT/HCPCS: 72157; A9577 ==

== ENCOUNTER 2020-12-08 08:16 | Inpatient (IN) | payer MEDICARE, OTHER ==
[~2020-12-08] VITALS: Ht 170.2 cm; Wt 83.9 kg
[~2020-12-08 08:16] MED LIST changes: -AMLODIPINE BESYL5 MG PO; -ATORVASTATIN CA20 MG PO; -CLINDAMYCIN PHO60 GM TP; -DEXAMETHASONE6 MG PO; -HUMALOG 10100 UNITS/ SC; -LANTUS SOL100 UNIT/1 SC; -LOPRESSOR 25 MG25 MG PO; -ROPINIROLE HCL0.5 MG PO; -SINGULAIR10 MG PO; -SODIUM CHLORI IR
[2020-12-08 09:07] LABS: HEMOGLOBIN 11.3 gm/dl (14.0-17.5); RED BLOOD COUNT 3.73 M/UL (4.20-5.50); WHITE BLOOD COUNT 22.6 K/UL (4.5-11.0)
[2020-12-08] MEDS ORDERED: LANTUS SOL100 UNIT/1 SQ (16:14)
[2020-12-08] MEDS ORDERED: SINGULAIR10 MG PO (16:19)
[2020-12-08] MEDS ORDERED: CLINDAMYCIN PHO60 GM TP (16:21)
[2020-12-08] MEDS ORDERED: SODIUM CHLORI IR (16:40)
[2020-12-08] MEDS ORDERED: WELCHOL 625 MG625 MG PO (16:41)
[2020-12-08] MEDS ORDERED: LANTUS SOL100 UNIT/1 SC (18:09)
--- NOTE | 2020-12-09 02:30 | NUR ---
CRITICAL LAB CALLED AT 0051 NB 13.7, THIS WAS 3RD ONE AND WAS IMPROVED FROM EACH OF THE PREVIOUS RESULTS.
[2020-12-09 07:17] LABS: HEMOGLOBIN 10.5 gm/dl (14.0-17.5); RED BLOOD COUNT 3.51 M/UL (4.20-5.50)
[2020-12-09 07:18] LABS: WHITE BLOOD COUNT 13.4 K/UL (4.5-11.0)
[2020-12-10 06:18] LABS: HEMOGLOBIN 10.7 gm/dl (14.0-17.5); RED BLOOD COUNT 3.59 M/UL (4.20-5.50); WHITE BLOOD COUNT 16.2 K/UL (4.5-11.0)
[2020-12-10 07:07] LABS: BUN/CREATININE RATIO 27 (0-10)
[2020-12-10] MEDS ORDERED: DEXAMETHASONE6 MG PO (09:56)
--- NOTE | 2020-12-10 19:36 | NUR ---
1630 Several attempts made to reach by phone to inform of patient's discharge. Talked with patient's son per phone. He stated his mom was immunocompromised & had cancer, but he would tell her to call us. 1800 Patient's son called back & said his Mom was sick & he was calling an ambulance to take her to the ER & there would be no one there to care for his Dad at home. Informed Dr Melendez per phone that patient could not be discharged today.
[2020-12-11 07:36] LABS: HEMOGLOBIN 10.5 gm/dl (14.0-17.5); RED BLOOD COUNT 3.53 M/UL (4.20-5.50)
[2020-12-11 07:46] LABS: WHITE BLOOD COUNT 10.8 K/UL (4.5-11.0)
[2020-12-11 08:07] LABS: BUN/CREATININE RATIO 21 (0-10)
[2020-12-12 03:48] LABS: HEMOGLOBIN 10.7 gm/dl (14.0-17.5); RED BLOOD COUNT 3.65 M/UL (4.20-5.50); WHITE BLOOD COUNT 9.5 K/UL (4.5-11.0)
[2020-12-12 04:09] LABS: BUN/CREATININE RATIO 17 (0-10)
[2020-12-13 08:32] LABS: HEMOGLOBIN 10.6 gm/dl (14.0-17.5); RED BLOOD COUNT 3.71 M/UL (4.20-5.50); WHITE BLOOD COUNT 10.9 K/UL (4.5-11.0)
[2020-12-13 08:55] LABS: BUN/CREATININE RATIO 17 (0-10)
[2020-12-14 07:28] LABS: HEMOGLOBIN 10.5 gm/dl (14.0-17.5); RED BLOOD COUNT 3.65 M/UL (4.20-5.50)
[2020-12-14 07:49] LABS: BUN/CREATININE RATIO 21 (0-10)
--- NOTE | 2020-12-15 05:11 | NUR ---
PT HAD TEMP OF 101.1. NOTIFIED MD AND ADMINISTERED TYLENOL PER ORDER. WILL CONTINUE TO MONITOR.
[2020-12-15 07:38] LABS: HEMOGLOBIN 10.6 gm/dl (14.0-17.5); RED BLOOD COUNT 3.64 M/UL (4.20-5.50); WHITE BLOOD COUNT 8.5 K/UL (4.5-11.0)
[2020-12-15 08:06] LABS: BUN/CREATININE RATIO 23 (0-10)
[2020-12-16 07:55] LABS: HEMOGLOBIN 11.1 gm/dl (14.0-17.5); RED BLOOD COUNT 3.83 M/UL (4.20-5.50); WHITE BLOOD COUNT 7.2 K/UL (4.5-11.0)
[2020-12-16 08:19] LABS: BUN/CREATININE RATIO 21 (0-10)
[2020-12-21 07:41] LABS: HEMOGLOBIN 11.4 gm/dl (14.0-17.5); RED BLOOD COUNT 3.86 M/UL (4.20-5.50); WHITE BLOOD COUNT 10.2 K/UL (4.5-11.0)
[2020-12-21 08:13] LABS: BUN/CREATININE RATIO 23 (0-10)
[2020-12-24 10:29] LABS: BUN/CREATININE RATIO 18 (0-10)
[2020-12-29 06:44] LABS: HEMOGLOBIN 12.9 gm/dl (14.0-17.5); RED BLOOD COUNT 4.21 M/UL (4.20-5.50); WHITE BLOOD COUNT 8.4 K/UL (4.5-11.0)
[2020-12-29 07:15] LABS: BUN/CREATININE RATIO 17 (0-10)
--- NOTE | 2020-12-30 07:58 | NUR ---
PATIENT ALERT AND ORIENTED WITH FSBS CHECKS THIS AM EVEN THOUGH THEY ARE VERY LOW. FIRST WAS 37, THE SECOND WAS 48. GLUCOSE GEL GIVEN BOTH TIMES. WILL RECHECK AT 8:15. PATIENT TALKING, SAYS THIS HAPPENS TO HIM MOST MORNINGS.
[2020-12-31] MEDS ORDERED: ATORVASTATIN CA20 MG PO (09:03)
[2020-12-31] MEDS ORDERED: LOPRESSOR 25 MG25 MG PO (09:03)
[2020-12-31] MEDS ORDERED: ROPINIROLE HCL0.5 MG PO (09:03)
[2020-12-31] MEDS ORDERED: AMLODIPINE BESYL5 MG PO (09:03)
[2020-12-31] MEDS ORDERED: OXYCODON-ACETA1 EAC1 PO (09:31)
[2020-12-31] MEDS ORDERED: HUMALOG 10100 UNITS/ SC (09:48)
--- NOTE | 2021-01-03 17:38 | NUR ---
PATIENT FAMILY CALLED AT THIS TIME AND STATES THAT THEY ARE UNABLE TO COME GET PATIENT UNTIL AFTER 1800 DUE TO LACK OF CHILDCARE. PROVIDER MADE AWARE.
== END 2021-01-03 19:35 | disposition home health service (06) | DRG 871 ==
LOC: ER1 08:16 → MED SURG 4 11:10 → CDU 11:10 → MED SURG 4 21:34
PROVIDERS: Family Medicine; Internal Medicine; ADMIT Internal Medicine
PROC: 3E0333Z Introduction of Anti-inflammatory into Peripheral Vein, Percutaneous Approach (ICD-10-PCS; principal; 2020-12-08)
PROC: XW033E5 Introduction of Remdesivir Anti-infective into Peripheral Vein, Percutaneous Approach, New Technology Group 5 (ICD-10-PCS; 2020-12-08)
PROC: 8E0ZXY6 Isolation (ICD-10-PCS; 2020-12-08)
DX: A41.89 Other specified sepsis (principal); U07.1 COVID-19; J12.82 Pneumonia due to coronavirus disease 2019; J96.01 Acute respiratory failure with hypoxia; R53.2 Functional quadriplegia; I50.22 Chronic systolic (congestive) heart failure; N17.9 Acute kidney failure, unspecified; I69.354 Hemiplegia and hemiparesis following cerebral infarction affecting left non-dominant side; R65.20 Severe sepsis without septic shock; Z85.07 Personal history of malignant neoplasm of pancreas; E83.42 Hypomagnesemia; I25.5 Ischemic cardiomyopathy; L89.620 Pressure ulcer of left heel, unstageable; I12.9 Hypertensive chronic kidney disease with stage 1 through stage 4 chronic kidney disease, or unspecified chronic kidney disease; N18.30 Chronic kidney disease, stage 3 unspecified; I25.10 Atherosclerotic heart disease of native coronary artery without angina pectoris; D69.6 Thrombocytopenia, unspecified; E11.22 Type 2 diabetes mellitus with diabetic chronic kidney disease; E11.649 Type 2 diabetes mellitus with hypoglycemia without coma; E87.6 Hypokalemia; Z79.4 Long term (current) use of insulin; Z79.02 Long term (current) use of antithrombotics/antiplatelets; Z74.01 Bed confinement status; Z88.2 Allergy status to sulfonamides; Z88.8 Allergy status to other drugs, medicaments and biological substances; Z82.49 Family history of ischemic heart disease and other diseases of the circulatory system
CPT/HCPCS: 36415; 36600; 71045; 80048; 80053; 81001; 82550; 82553; 82803; 82962; 83036; 83605; 83735; 83880; 84100; 84484; 85025; 85027; 86140; 87040; 87086; 93005; 94640; 94760; 97161; 97167; 99285; A6212; J1100; J1644; J1650; J2543; J3475; J7030; U0002

== ENCOUNTER → 2021-03-12 | Outpatient (CLI) | payer MEDICARE, OTHER ==
[~2021-03-12] MED LIST changes: +AMLODIPINE BESYL5 MG PO; +ATORVASTATIN CA20 MG PO; +CLINDAMYCIN PHO60 GM TP; +DEXAMETHASONE6 MG PO; +HUMALOG 10100 UNITS/ SC; +LANTUS SOL100 UNIT/1 SC; +LOPRESSOR 25 MG25 MG PO; +ROPINIROLE HCL0.5 MG PO; +SINGULAIR10 MG PO; +SODIUM CHLORI IR
== END | disposition home or self-care (01) ==
LOC: WCC 07:29
PROC: 0JBN0ZZ Excision of Right Lower Leg Subcutaneous Tissue and Fascia, Open Approach (ICD-10-PCS; principal; 2021-03-12)
DX: E11.622 Type 2 diabetes mellitus with other skin ulcer (principal); L97.815 Non-pressure chronic ulcer of other part of right lower leg with muscle involvement without evidence of necrosis; I69.354 Hemiplegia and hemiparesis following cerebral infarction affecting left non-dominant side; I25.5 Ischemic cardiomyopathy; J45.909 Unspecified asthma, uncomplicated; D64.9 Anemia, unspecified; E11.22 Type 2 diabetes mellitus with diabetic chronic kidney disease; I12.9 Hypertensive chronic kidney disease with stage 1 through stage 4 chronic kidney disease, or unspecified chronic kidney disease; N18.30 Chronic kidney disease, stage 3 unspecified; I25.10 Atherosclerotic heart disease of native coronary artery without angina pectoris; E11.40 Type 2 diabetes mellitus with diabetic neuropathy, unspecified; G40.909 Epilepsy, unspecified, not intractable, without status epilepticus; Z79.4 Long term (current) use of insulin; Z88.1 Allergy status to other antibiotic agents; Z86.16 Personal history of COVID-19; Z95.5 Presence of coronary angioplasty implant and graft; Z99.3 Dependence on wheelchair

== ENCOUNTER → 2021-03-17 | Outpatient (CLI) | payer MEDICARE, OTHER | LOC: CT 13:38 | DX: C25.0 Malignant neoplasm of head of pancreas (principal); C77.2 Secondary and unspecified malignant neoplasm of intra-abdominal lymph nodes; Z87.891 Personal history of nicotine dependence; Z95.828 Presence of other vascular implants and grafts; K86.89 Other specified diseases of pancreas; N32.89 Other specified disorders of bladder | CPT/HCPCS: 71260; Q9967 ==

== ENCOUNTER → 2021-03-19 | Outpatient (CLI) | payer MEDICARE, OTHER | END | disposition home or self-care (01) | LOC: WCC 07:33 | PROC: 0JBP0ZZ Excision of Left Lower Leg Subcutaneous Tissue and Fascia, Open Approach (ICD-10-PCS; principal; 2021-03-19) | DX: E11.622 Type 2 diabetes mellitus with other skin ulcer (principal); L97.215 Non-pressure chronic ulcer of right calf with muscle involvement without evidence of necrosis; S81.802D Unspecified open wound, left lower leg, subsequent encounter; I69.364 Other paralytic syndrome following cerebral infarction affecting left non-dominant side; I13.0 Hypertensive heart and chronic kidney disease with heart failure and stage 1 through stage 4 chronic kidney disease, or unspecified chronic kidney disease; E11.22 Type 2 diabetes mellitus with diabetic chronic kidney disease; N18.30 Chronic kidney disease, stage 3 unspecified; I50.9 Heart failure, unspecified; D63.1 Anemia in chronic kidney disease; J45.909 Unspecified asthma, uncomplicated; I25.10 Atherosclerotic heart disease of native coronary artery without angina pectoris; M19.90 Unspecified osteoarthritis, unspecified site; E11.40 Type 2 diabetes mellitus with diabetic neuropathy, unspecified; G40.909 Epilepsy, unspecified, not intractable, without status epilepticus; I25.5 Ischemic cardiomyopathy; C25.3 Malignant neoplasm of pancreatic duct; Z86.16 Personal history of COVID-19; Z79.4 Long term (current) use of insulin; Z99.3 Dependence on wheelchair; Z88.1 Allergy status to other antibiotic agents; Z88.8 Allergy status to other drugs, medicaments and biological substances; Z79.891 Long term (current) use of opiate analgesic; Z79.899 Other long term (current) drug therapy; X58.XXXD Exposure to other specified factors, subsequent encounter ==

== ENCOUNTER → 2021-03-26 | Outpatient (CLI) | payer MEDICARE, OTHER | END | disposition home or self-care (01) | LOC: WCC 07:52 | PROC: 0KBS0ZZ Excision of Right Lower Leg Muscle, Open Approach (ICD-10-PCS; principal; 2021-03-26) | DX: E11.622 Type 2 diabetes mellitus with other skin ulcer (principal); L97.815 Non-pressure chronic ulcer of other part of right lower leg with muscle involvement without evidence of necrosis; I69.364 Other paralytic syndrome following cerebral infarction affecting left non-dominant side; G83.9 Paralytic syndrome, unspecified; E11.22 Type 2 diabetes mellitus with diabetic chronic kidney disease; I12.9 Hypertensive chronic kidney disease with stage 1 through stage 4 chronic kidney disease, or unspecified chronic kidney disease; N18.30 Chronic kidney disease, stage 3 unspecified; I25.5 Ischemic cardiomyopathy; Z86.16 Personal history of COVID-19; D64.9 Anemia, unspecified; J45.909 Unspecified asthma, uncomplicated; I25.10 Atherosclerotic heart disease of native coronary artery without angina pectoris; E11.40 Type 2 diabetes mellitus with diabetic neuropathy, unspecified; G40.909 Epilepsy, unspecified, not intractable, without status epilepticus; M19.90 Unspecified osteoarthritis, unspecified site; C25.3 Malignant neoplasm of pancreatic duct; Z99.3 Dependence on wheelchair; Z79.4 Long term (current) use of insulin; Z79.899 Other long term (current) drug therapy; Z88.1 Allergy status to other antibiotic agents ==

== ENCOUNTER → 2021-04-23 | Outpatient (CLI) | payer MEDICARE, OTHER | END | disposition home or self-care (01) | LOC: WCC 09:07 | PROC: 0KBS0ZZ Excision of Right Lower Leg Muscle, Open Approach (ICD-10-PCS; principal; 2021-04-23) | DX: E11.622 Type 2 diabetes mellitus with other skin ulcer (principal); L97.815 Non-pressure chronic ulcer of other part of right lower leg with muscle involvement without evidence of necrosis; I12.9 Hypertensive chronic kidney disease with stage 1 through stage 4 chronic kidney disease, or unspecified chronic kidney disease; E11.22 Type 2 diabetes mellitus with diabetic chronic kidney disease; N18.30 Chronic kidney disease, stage 3 unspecified; C25.3 Malignant neoplasm of pancreatic duct; I25.5 Ischemic cardiomyopathy; I69.364 Other paralytic syndrome following cerebral infarction affecting left non-dominant side; D64.9 Anemia, unspecified; J45.909 Unspecified asthma, uncomplicated; I25.10 Atherosclerotic heart disease of native coronary artery without angina pectoris; E11.40 Type 2 diabetes mellitus with diabetic neuropathy, unspecified; Z79.4 Long term (current) use of insulin; Z79.899 Other long term (current) drug therapy; Z88.1 Allergy status to other antibiotic agents; Z88.8 Allergy status to other drugs, medicaments and biological substances; Z99.3 Dependence on wheelchair; G40.909 Epilepsy, unspecified, not intractable, without status epilepticus ==

== ENCOUNTER → 2021-05-07 | Outpatient (CLI) | payer MEDICARE, OTHER | END | disposition home or self-care (01) | LOC: WCC 07:31 | PROC: 0JBP0ZZ Excision of Left Lower Leg Subcutaneous Tissue and Fascia, Open Approach (ICD-10-PCS; principal; 2021-05-07) | DX: E11.622 Type 2 diabetes mellitus with other skin ulcer (principal); L97.822 Non-pressure chronic ulcer of other part of left lower leg with fat layer exposed; E11.22 Type 2 diabetes mellitus with diabetic chronic kidney disease; I12.9 Hypertensive chronic kidney disease with stage 1 through stage 4 chronic kidney disease, or unspecified chronic kidney disease; N18.30 Chronic kidney disease, stage 3 unspecified; J45.909 Unspecified asthma, uncomplicated; D64.9 Anemia, unspecified; I25.10 Atherosclerotic heart disease of native coronary artery without angina pectoris; E11.40 Type 2 diabetes mellitus with diabetic neuropathy, unspecified; G40.909 Epilepsy, unspecified, not intractable, without status epilepticus; Z86.16 Personal history of COVID-19; M19.90 Unspecified osteoarthritis, unspecified site; I25.5 Ischemic cardiomyopathy; C25.3 Malignant neoplasm of pancreatic duct; I69.364 Other paralytic syndrome following cerebral infarction affecting left non-dominant side; Z79.4 Long term (current) use of insulin; Z79.899 Other long term (current) drug therapy; Z88.1 Allergy status to other antibiotic agents; Z88.8 Allergy status to other drugs, medicaments and biological substances; Z99.3 Dependence on wheelchair ==

== ENCOUNTER → 2021-05-21 | Outpatient (CLI) | payer MEDICARE, OTHER | END | disposition home or self-care (01) | LOC: WCC 07:48 | PROC: 0JBN0ZZ Excision of Right Lower Leg Subcutaneous Tissue and Fascia, Open Approach (ICD-10-PCS; principal; 2021-05-21) | DX: E11.622 Type 2 diabetes mellitus with other skin ulcer (principal); L97.812 Non-pressure chronic ulcer of other part of right lower leg with fat layer exposed; I12.9 Hypertensive chronic kidney disease with stage 1 through stage 4 chronic kidney disease, or unspecified chronic kidney disease; E11.22 Type 2 diabetes mellitus with diabetic chronic kidney disease; N18.30 Chronic kidney disease, stage 3 unspecified; I69.364 Other paralytic syndrome following cerebral infarction affecting left non-dominant side; G82.50 Quadriplegia, unspecified; C25.3 Malignant neoplasm of pancreatic duct; Z86.16 Personal history of COVID-19; D64.9 Anemia, unspecified; J45.909 Unspecified asthma, uncomplicated; I25.10 Atherosclerotic heart disease of native coronary artery without angina pectoris; M19.90 Unspecified osteoarthritis, unspecified site; E11.40 Type 2 diabetes mellitus with diabetic neuropathy, unspecified; G40.909 Epilepsy, unspecified, not intractable, without status epilepticus; I25.5 Ischemic cardiomyopathy; S81.802A Unspecified open wound, left lower leg, initial encounter; X58.XXXA Exposure to other specified factors, initial encounter; Z79.4 Long term (current) use of insulin; Z79.899 Other long term (current) drug therapy; Z99.3 Dependence on wheelchair; Z88.1 Allergy status to other antibiotic agents; Z88.8 Allergy status to other drugs, medicaments and biological substances ==

== ENCOUNTER → 2021-06-04 | Outpatient (CLI) | payer MEDICARE, OTHER | END | disposition home or self-care (01) | LOC: WCC 07:49 | PROC: 0JBN0ZZ Excision of Right Lower Leg Subcutaneous Tissue and Fascia, Open Approach (ICD-10-PCS; principal; 2021-06-04) | DX: E11.622 Type 2 diabetes mellitus with other skin ulcer (principal); L97.812 Non-pressure chronic ulcer of other part of right lower leg with fat layer exposed; I13.0 Hypertensive heart and chronic kidney disease with heart failure and stage 1 through stage 4 chronic kidney disease, or unspecified chronic kidney disease; I50.9 Heart failure, unspecified; E11.22 Type 2 diabetes mellitus with diabetic chronic kidney disease; N18.30 Chronic kidney disease, stage 3 unspecified; I25.5 Ischemic cardiomyopathy; C25.3 Malignant neoplasm of pancreatic duct; Z86.16 Personal history of COVID-19; I69.364 Other paralytic syndrome following cerebral infarction affecting left non-dominant side; G82.50 Quadriplegia, unspecified; I25.10 Atherosclerotic heart disease of native coronary artery without angina pectoris; D64.9 Anemia, unspecified; J45.909 Unspecified asthma, uncomplicated; M19.90 Unspecified osteoarthritis, unspecified site; E11.40 Type 2 diabetes mellitus with diabetic neuropathy, unspecified; G43.909 Migraine, unspecified, not intractable, without status migrainosus; Z79.4 Long term (current) use of insulin; Z79.899 Other long term (current) drug therapy; Z74.01 Bed confinement status; Z88.1 Allergy status to other antibiotic agents; Z88.8 Allergy status to other drugs, medicaments and biological substances; Z99.3 Dependence on wheelchair ==

== ENCOUNTER → 2021-06-18 | Outpatient (CLI) | payer MEDICARE, OTHER | END | disposition home or self-care (01) | LOC: WCC 07:11 | PROC: 0JBN0ZZ Excision of Right Lower Leg Subcutaneous Tissue and Fascia, Open Approach (ICD-10-PCS; principal; 2021-06-18) | DX: E11.622 Type 2 diabetes mellitus with other skin ulcer (principal); L97.812 Non-pressure chronic ulcer of other part of right lower leg with fat layer exposed; I12.9 Hypertensive chronic kidney disease with stage 1 through stage 4 chronic kidney disease, or unspecified chronic kidney disease; E11.22 Type 2 diabetes mellitus with diabetic chronic kidney disease; N18.30 Chronic kidney disease, stage 3 unspecified; I69.364 Other paralytic syndrome following cerebral infarction affecting left non-dominant side; Z86.16 Personal history of COVID-19; C25.3 Malignant neoplasm of pancreatic duct; E11.40 Type 2 diabetes mellitus with diabetic neuropathy, unspecified; D64.9 Anemia, unspecified; I25.10 Atherosclerotic heart disease of native coronary artery without angina pectoris; G40.909 Epilepsy, unspecified, not intractable, without status epilepticus; I25.5 Ischemic cardiomyopathy; Z79.4 Long term (current) use of insulin; Z79.899 Other long term (current) drug therapy; Z88.1 Allergy status to other antibiotic agents; Z99.3 Dependence on wheelchair ==

== ENCOUNTER → 2021-06-19 | Outpatient (CLI) | payer MEDICARE, OTHER | LOC: CT 11:29 | DX: C25.0 Malignant neoplasm of head of pancreas (principal); C77.2 Secondary and unspecified malignant neoplasm of intra-abdominal lymph nodes; Z87.891 Personal history of nicotine dependence; K76.9 Liver disease, unspecified; K31.9 Disease of stomach and duodenum, unspecified | CPT/HCPCS: 71260; Q9967 ==

== ENCOUNTER → 2021-07-02 | Outpatient (CLI) | payer MEDICARE, OTHER | LOC: WCC 08:33 | DX: E11.622 Type 2 diabetes mellitus with other skin ulcer (principal); E11.22 Type 2 diabetes mellitus with diabetic chronic kidney disease; I12.9 Hypertensive chronic kidney disease with stage 1 through stage 4 chronic kidney disease, or unspecified chronic kidney disease; N18.30 Chronic kidney disease, stage 3 unspecified; S81.802D Unspecified open wound, left lower leg, subsequent encounter; C25.3 Malignant neoplasm of pancreatic duct; I25.5 Ischemic cardiomyopathy; I69.364 Other paralytic syndrome following cerebral infarction affecting left non-dominant side; Z79.4 Long term (current) use of insulin; Z99.3 Dependence on wheelchair | CPT/HCPCS: 97597 ==

== ENCOUNTER → 2021-07-15 | Outpatient (CLI) | payer MEDICARE, OTHER | END | disposition home or self-care (01) | LOC: WCC 07:53 | PROC: 0JBN0ZZ Excision of Right Lower Leg Subcutaneous Tissue and Fascia, Open Approach (ICD-10-PCS; principal; 2021-07-15) | DX: E11.622 Type 2 diabetes mellitus with other skin ulcer (principal); L97.811 Non-pressure chronic ulcer of other part of right lower leg limited to breakdown of skin; E11.22 Type 2 diabetes mellitus with diabetic chronic kidney disease; I12.9 Hypertensive chronic kidney disease with stage 1 through stage 4 chronic kidney disease, or unspecified chronic kidney disease; N18.30 Chronic kidney disease, stage 3 unspecified; I69.364 Other paralytic syndrome following cerebral infarction affecting left non-dominant side; I25.5 Ischemic cardiomyopathy; C25.3 Malignant neoplasm of pancreatic duct; D64.9 Anemia, unspecified; J45.909 Unspecified asthma, uncomplicated; I25.10 Atherosclerotic heart disease of native coronary artery without angina pectoris; M19.90 Unspecified osteoarthritis, unspecified site; E11.40 Type 2 diabetes mellitus with diabetic neuropathy, unspecified; G40.909 Epilepsy, unspecified, not intractable, without status epilepticus; Z79.4 Long term (current) use of insulin; Z88.1 Allergy status to other antibiotic agents; Z88.8 Allergy status to other drugs, medicaments and biological substances; Z99.3 Dependence on wheelchair; Z79.899 Other long term (current) drug therapy ==

== ENCOUNTER → 2021-07-29 | Outpatient (CLI) | payer MEDICARE, OTHER | END | disposition home or self-care (01) | LOC: WCC 07:27 | PROC: 0JBN0ZZ Excision of Right Lower Leg Subcutaneous Tissue and Fascia, Open Approach (ICD-10-PCS; principal; 2021-07-29) | DX: E11.622 Type 2 diabetes mellitus with other skin ulcer (principal); L97.812 Non-pressure chronic ulcer of other part of right lower leg with fat layer exposed; I12.9 Hypertensive chronic kidney disease with stage 1 through stage 4 chronic kidney disease, or unspecified chronic kidney disease; E11.22 Type 2 diabetes mellitus with diabetic chronic kidney disease; N18.30 Chronic kidney disease, stage 3 unspecified; I25.5 Ischemic cardiomyopathy; I69.364 Other paralytic syndrome following cerebral infarction affecting left non-dominant side; D64.9 Anemia, unspecified; J45.909 Unspecified asthma, uncomplicated; I25.10 Atherosclerotic heart disease of native coronary artery without angina pectoris; E11.40 Type 2 diabetes mellitus with diabetic neuropathy, unspecified; G40.909 Epilepsy, unspecified, not intractable, without status epilepticus; Z79.4 Long term (current) use of insulin; Z79.899 Other long term (current) drug therapy; Z99.3 Dependence on wheelchair; Z88.1 Allergy status to other antibiotic agents ==

== ENCOUNTER → 2021-08-17 | Outpatient (CLI) | payer MEDICARE, OTHER | END | disposition home or self-care (01) | LOC: WCC 07:45 | PROC: 0JBN0ZZ Excision of Right Lower Leg Subcutaneous Tissue and Fascia, Open Approach (ICD-10-PCS; principal; 2021-08-17) | DX: E11.622 Type 2 diabetes mellitus with other skin ulcer (principal); L97.812 Non-pressure chronic ulcer of other part of right lower leg with fat layer exposed; L97.811 Non-pressure chronic ulcer of other part of right lower leg limited to breakdown of skin; L89.620 Pressure ulcer of left heel, unstageable; L89.619 Pressure ulcer of right heel, unspecified stage; E11.40 Type 2 diabetes mellitus with diabetic neuropathy, unspecified; E11.52 Type 2 diabetes mellitus with diabetic peripheral angiopathy with gangrene; E11.621 Type 2 diabetes mellitus with foot ulcer; L97.429 Non-pressure chronic ulcer of left heel and midfoot with unspecified severity; L97.419 Non-pressure chronic ulcer of right heel and midfoot with unspecified severity; I69.364 Other paralytic syndrome following cerebral infarction affecting left non-dominant side; I13.0 Hypertensive heart and chronic kidney disease with heart failure and stage 1 through stage 4 chronic kidney disease, or unspecified chronic kidney disease; E11.22 Type 2 diabetes mellitus with diabetic chronic kidney disease; N18.30 Chronic kidney disease, stage 3 unspecified; I50.9 Heart failure, unspecified; D63.1 Anemia in chronic kidney disease; M19.90 Unspecified osteoarthritis, unspecified site; G40.909 Epilepsy, unspecified, not intractable, without status epilepticus; I25.5 Ischemic cardiomyopathy; C25.3 Malignant neoplasm of pancreatic duct; Z86.16 Personal history of COVID-19; Z79.4 Long term (current) use of insulin; Z79.899 Other long term (current) drug therapy; Z99.3 Dependence on wheelchair; Z88.1 Allergy status to other antibiotic agents; Z88.8 Allergy status to other drugs, medicaments and biological substances | CPT/HCPCS: 97597 ==

== ENCOUNTER → 2021-09-03 | Outpatient (CLI) | payer MEDICARE, OTHER | END | disposition home or self-care (01) | LOC: WCC 07:17 | PROC: 0JBR0ZZ Excision of Left Foot Subcutaneous Tissue and Fascia, Open Approach (ICD-10-PCS; principal; 2021-09-03) | DX: E11.621 Type 2 diabetes mellitus with foot ulcer (principal); E11.22 Type 2 diabetes mellitus with diabetic chronic kidney disease; L97.424 Non-pressure chronic ulcer of left heel and midfoot with necrosis of bone; I12.9 Hypertensive chronic kidney disease with stage 1 through stage 4 chronic kidney disease, or unspecified chronic kidney disease; N18.30 Chronic kidney disease, stage 3 unspecified; I69.364 Other paralytic syndrome following cerebral infarction affecting left non-dominant side; L89.619 Pressure ulcer of right heel, unspecified stage; C25.3 Malignant neoplasm of pancreatic duct; D64.9 Anemia, unspecified; J45.909 Unspecified asthma, uncomplicated; I25.10 Atherosclerotic heart disease of native coronary artery without angina pectoris; M19.90 Unspecified osteoarthritis, unspecified site; E11.40 Type 2 diabetes mellitus with diabetic neuropathy, unspecified; G40.909 Epilepsy, unspecified, not intractable, without status epilepticus; I25.5 Ischemic cardiomyopathy; Z79.899 Other long term (current) drug therapy; Z79.4 Long term (current) use of insulin; Z88.1 Allergy status to other antibiotic agents; Z88.8 Allergy status to other drugs, medicaments and biological substances; Z99.3 Dependence on wheelchair ==

== ENCOUNTER → 2021-10-01 | Outpatient (CLI) | payer MEDICARE, OTHER | END | disposition home or self-care (01) | LOC: WCC 07:56 | PROC: 0JBR0ZZ Excision of Left Foot Subcutaneous Tissue and Fascia, Open Approach (ICD-10-PCS; principal; 2021-10-01) | PROC: 0JBN0ZZ Excision of Right Lower Leg Subcutaneous Tissue and Fascia, Open Approach (ICD-10-PCS; 2021-10-01) | DX: L97.818 Non-pressure chronic ulcer of other part of right lower leg with other specified severity (principal); L97.428 Non-pressure chronic ulcer of left heel and midfoot with other specified severity | CPT/HCPCS: 97597 ==

== ENCOUNTER → 2021-10-02 | Outpatient (CLI) | payer MEDICARE, OTHER ==
[2021-10-02 11:44] LABS: HEMOGLOBIN 15.4 gm/dl (14.0-17.5); RED BLOOD COUNT 4.34 M/UL (4.20-5.50); WHITE BLOOD COUNT 10.9 K/UL (4.5-11.0)
[2021-10-02 12:11] LABS: BUN/CREATININE RATIO 28 (0-10)
== END ==
LOC: CT 11:12
PROVIDERS: Internal Medicine Hematology & Oncology
DX: C25.0 Malignant neoplasm of head of pancreas (principal); C77.2 Secondary and unspecified malignant neoplasm of intra-abdominal lymph nodes; K86.89 Other specified diseases of pancreas; K83.8 Other specified diseases of biliary tract; Z87.891 Personal history of nicotine dependence; K56.41 Fecal impaction; R19.00 Intra-abdominal and pelvic swelling, mass and lump, unspecified site
CPT/HCPCS: 36415; 71260; 80053; 85025; Q9967

== ENCOUNTER → 2021-11-05 | Outpatient (CLI) | payer MEDICARE, OTHER | END | disposition home or self-care (01) | LOC: WCC 07:36 | PROC: 0JBR0ZZ Excision of Left Foot Subcutaneous Tissue and Fascia, Open Approach (ICD-10-PCS; principal; 2021-11-05) | DX: E11.621 Type 2 diabetes mellitus with foot ulcer (principal); L97.421 Non-pressure chronic ulcer of left heel and midfoot limited to breakdown of skin; E11.622 Type 2 diabetes mellitus with other skin ulcer; L97.812 Non-pressure chronic ulcer of other part of right lower leg with fat layer exposed; L89.620 Pressure ulcer of left heel, unstageable; L89.619 Pressure ulcer of right heel, unspecified stage; E11.52 Type 2 diabetes mellitus with diabetic peripheral angiopathy with gangrene; I96 Gangrene, not elsewhere classified; I13.0 Hypertensive heart and chronic kidney disease with heart failure and stage 1 through stage 4 chronic kidney disease, or unspecified chronic kidney disease; E11.22 Type 2 diabetes mellitus with diabetic chronic kidney disease; N18.30 Chronic kidney disease, stage 3 unspecified; I50.9 Heart failure, unspecified; D63.1 Anemia in chronic kidney disease; G82.50 Quadriplegia, unspecified; I25.5 Ischemic cardiomyopathy; C25.3 Malignant neoplasm of pancreatic duct; I69.364 Other paralytic syndrome following cerebral infarction affecting left non-dominant side; E11.40 Type 2 diabetes mellitus with diabetic neuropathy, unspecified; G40.909 Epilepsy, unspecified, not intractable, without status epilepticus; I25.10 Atherosclerotic heart disease of native coronary artery without angina pectoris; Z99.3 Dependence on wheelchair; Z79.4 Long term (current) use of insulin; Z79.899 Other long term (current) drug therapy; Z86.16 Personal history of COVID-19; Z88.1 Allergy status to other antibiotic agents; Z88.8 Allergy status to other drugs, medicaments and biological substances ==

== ENCOUNTER → 2021-11-19 | Outpatient (CLI) | payer MEDICARE, OTHER | LOC: WCC 07:14 | PROC: 0JBR0ZZ Excision of Left Foot Subcutaneous Tissue and Fascia, Open Approach (ICD-10-PCS; principal; 2021-11-19) | PROC: 0JBN0ZZ Excision of Right Lower Leg Subcutaneous Tissue and Fascia, Open Approach (ICD-10-PCS; 2021-11-19) | DX: E11.621 Type 2 diabetes mellitus with foot ulcer (principal); E11.622 Type 2 diabetes mellitus with other skin ulcer; L97.819 Non-pressure chronic ulcer of other part of right lower leg with unspecified severity; L97.429 Non-pressure chronic ulcer of left heel and midfoot with unspecified severity; E11.22 Type 2 diabetes mellitus with diabetic chronic kidney disease; I12.9 Hypertensive chronic kidney disease with stage 1 through stage 4 chronic kidney disease, or unspecified chronic kidney disease; N18.30 Chronic kidney disease, stage 3 unspecified ==

== ENCOUNTER → 2021-12-03 | Outpatient (CLI) | payer MEDICARE, OTHER | END | disposition home or self-care (01) | LOC: WCC 07:25 | PROC: 0KBS0ZZ Excision of Right Lower Leg Muscle, Open Approach (ICD-10-PCS; principal; 2021-12-03) | PROC: 0JBR0ZZ Excision of Left Foot Subcutaneous Tissue and Fascia, Open Approach (ICD-10-PCS; 2021-12-03) | DX: E11.622 Type 2 diabetes mellitus with other skin ulcer (principal); L97.813 Non-pressure chronic ulcer of other part of right lower leg with necrosis of muscle; E11.621 Type 2 diabetes mellitus with foot ulcer; L97.428 Non-pressure chronic ulcer of left heel and midfoot with other specified severity; I69.364 Other paralytic syndrome following cerebral infarction affecting left non-dominant side; Z86.16 Personal history of COVID-19; I12.9 Hypertensive chronic kidney disease with stage 1 through stage 4 chronic kidney disease, or unspecified chronic kidney disease; E11.22 Type 2 diabetes mellitus with diabetic chronic kidney disease; N18.30 Chronic kidney disease, stage 3 unspecified; G40.909 Epilepsy, unspecified, not intractable, without status epilepticus; J45.909 Unspecified asthma, uncomplicated; I25.10 Atherosclerotic heart disease of native coronary artery without angina pectoris; M19.90 Unspecified osteoarthritis, unspecified site; E11.40 Type 2 diabetes mellitus with diabetic neuropathy, unspecified; D63.1 Anemia in chronic kidney disease; I25.5 Ischemic cardiomyopathy; Z79.4 Long term (current) use of insulin; Z79.899 Other long term (current) drug therapy; Z99.3 Dependence on wheelchair; Z88.1 Allergy status to other antibiotic agents ==

== ENCOUNTER → 2021-12-28 | Outpatient (CLI) | payer MEDICARE, OTHER ==
[~2021-12-28] VITALS: Ht 170.2 cm; Wt 79.4 kg
== END ==
LOC: CT 09:00
DX: C25.0 Malignant neoplasm of head of pancreas (principal); C77.2 Secondary and unspecified malignant neoplasm of intra-abdominal lymph nodes; K56.41 Fecal impaction; K31.89 Other diseases of stomach and duodenum; K83.8 Other specified diseases of biliary tract; Z87.891 Personal history of nicotine dependence; K86.89 Other specified diseases of pancreas
CPT/HCPCS: 71260; 96523; J1642; Q9967

== ENCOUNTER → 2021-12-29 | Outpatient (CLI) | payer MEDICARE, OTHER | END | disposition home or self-care (01) | LOC: WCC 07:36 | PROC: 0JBR0ZZ Excision of Left Foot Subcutaneous Tissue and Fascia, Open Approach (ICD-10-PCS; principal; 2021-12-29) | PROC: 0JBN0ZZ Excision of Right Lower Leg Subcutaneous Tissue and Fascia, Open Approach (ICD-10-PCS; 2021-12-29) | DX: E11.622 Type 2 diabetes mellitus with other skin ulcer (principal); L97.215 Non-pressure chronic ulcer of right calf with muscle involvement without evidence of necrosis; E11.621 Type 2 diabetes mellitus with foot ulcer; L97.425 Non-pressure chronic ulcer of left heel and midfoot with muscle involvement without evidence of necrosis; L89.620 Pressure ulcer of left heel, unstageable; E11.51 Type 2 diabetes mellitus with diabetic peripheral angiopathy without gangrene; I96 Gangrene, not elsewhere classified; I12.9 Hypertensive chronic kidney disease with stage 1 through stage 4 chronic kidney disease, or unspecified chronic kidney disease; N18.30 Chronic kidney disease, stage 3 unspecified; E11.22 Type 2 diabetes mellitus with diabetic chronic kidney disease; D63.1 Anemia in chronic kidney disease; I25.10 Atherosclerotic heart disease of native coronary artery without angina pectoris; M19.90 Unspecified osteoarthritis, unspecified site; E11.40 Type 2 diabetes mellitus with diabetic neuropathy, unspecified; G40.909 Epilepsy, unspecified, not intractable, without status epilepticus; I25.5 Ischemic cardiomyopathy; I69.364 Other paralytic syndrome following cerebral infarction affecting left non-dominant side; C25.3 Malignant neoplasm of pancreatic duct; Z86.16 Personal history of COVID-19; Z79.4 Long term (current) use of insulin; Z79.891 Long term (current) use of opiate analgesic; Z79.899 Other long term (current) drug therapy; Z99.3 Dependence on wheelchair; Z74.01 Bed confinement status; Z88.1 Allergy status to other antibiotic agents; Z88.8 Allergy status to other drugs, medicaments and biological substances ==

== ENCOUNTER → 2022-01-04 | Outpatient (CLI) | payer MEDICARE, OTHER | LOC: EMI 01-01 11:00 | DX: C25.0 Malignant neoplasm of head of pancreas (principal); C77.2 Secondary and unspecified malignant neoplasm of intra-abdominal lymph nodes; Z87.891 Personal history of nicotine dependence; G93.89 Other specified disorders of brain; R90.82 White matter disease, unspecified | CPT/HCPCS: 70553; A9577 ==